=== PATIENT | female | born 1970 | race Caucasian/White ===

== ENCOUNTER 2018-12-05 06:49 | Inpatient (IN) | payer OTHER ==
[~2018-12-05] VITALS: Ht 154.9 cm; Wt 81.6 kg
--- NOTE | 2018-12-05 07:00 | ERD ---
ER Documentation Chief Complaint Chief Complaint right sided abdominal pain HPI The patient is a 48-year-old female, presenting to the ER because of right-sided abdominal pain that began around 9 PM last night, she has similar symptoms previously, the abdominal pain is associated with constipation and dysuria and vomiting. She denies fever, chills, neck pain, chest pain, dyspnea. She does not smoke nor drink Past medical history: None Past surgical history: Tubal ligation ROS All systems reviewed and are negative except as per history of present illness. Allergies Allergies: Coded Allergies: No Known Allergy (Unverified , 01/29/14) PMhx/Soc History of Surgery: No Anesthesia Reaction: No Hx Neurological Disorder: No Hx Respiratory Disorders: No Hx Cardiac Disorders: No Hx Psychiatric Problems: Yes (bipolar) Hx Miscellaneous Medical Probl: Yes (thyroid ?) Physical Exam Vitals Vital Signs Date Temp Pulse Resp B/P (MAP) Pulse Ox O2 O2 Flow FiO2 Time Delivery Rate 12/05/18 60 25 149/89 95 Room Air 07:15 (109) 12/05/18 98.9 72 19 168/98 99 06:50 (121) Physical Exam Const: No acute distress. Head: Atraumatic. Eyes: Normal Conjunctiva. ENT: Normal External Ears, Nose and Mouth. Neck: Full range of motion. No meningismus. Resp: Clear to auscultation bilaterally. Cardio: Regular rate and rhythm. Abd: Soft, non distended, normal bowel sounds, mild right upper and moderate right lower abdominal tenderness, mild right CVA tenderness, no rigidity/rebound tenderness Skin: No petechiae or rashes. Back: No midline or flank tenderness. Ext: No cyanosis, or edema. Neur: Awake and alert. No focal deficit Psych: Normal Mood and Affect. Result Diagram: 12/05/1871212/05/1813 Results 24 hrs Laboratory Tests Test 12/05/18 07:13 12/05/18 07:24 12/05/18 07:26 White Blood Count 12.7 10^3/ul Red Blood Count 3.90 10^6/ul Hemoglobin 12.1 g/dl Hematocrit 35.9 % Mean Corpuscular Volume 92.1 fl Mean Corpuscular Hemoglobin 31.0 pg Mean Corpuscular 33.7 g/dl Hemoglobin Concent Red Cell Distribution Width 13.1 % Platelet Count 229 10^3/UL Mean Platelet Volume 10.7 fl Immature Granulocytes % 0.300 % Neutrophils % 80.3 % Lymphocytes % 13.8 % Monocytes % 5.0 % Eosinophils % 0.2 % Basophils % 0.4 % Nucleated Red Blood Cells % 0.0 /100WBC Immature Granulocytes # 0.040 10^3/ul Neutrophils # 10.2 10^3/ul Lymphocytes # 1.8 10^3/ul Monocytes # 0.6 10^3/ul Eosinophils # 0.0 10^3/ul Basophils # 0.1 10^3/ul Nucleated Red Blood Cells # 0.0 10^3/ul Sodium Level 142 mmol/L Potassium Level 4.1 mmol/L Chloride Level 111 mmol/L Carbon Dioxide Level 24 mmol/L Anion Gap 7 Blood Urea Nitrogen 17 mg/dl Creatinine 0.79 mg/dl Est Glomerular Filtrat Rate mL/min > 60 mL/min Glucose Level 118 mg/dl Calcium Level 9.5 mg/dl Total Bilirubin 0.5 mg/dl Direct Bilirubin 0.00 mg/dl Indirect Bilirubin 0.5 mg/dl Aspartate Amino Transf (AST/SGOT) 25 IU/L Alanine 16 IU/L Aminotransferase (ALT/SGPT) Alkaline Phosphatase 78 IU/L Total Protein 7.9 g/dl Albumin 4.3 g/dl Globulin 3.60 g/dl Albumin/Globulin Ratio 1.19 Lipase 81 U/L Bedside Urine pH (LAB) 7.0 Bedside Urine Protein (LAB) 1+ Bedside Urine Glucose (UA) Negative Bedside Urine Ketones (LAB) Negative Bedside Urine Blood 3+ Bedside Urine Nitrite (LAB) Negative Bedside Urine Leukocyte Esterase Trace (L POC Beta HCG, Qualitative NEGATIVE Current Medications Medications Dose Sig/Leann Start Time Status Last (Trade) Ordered Route PRN Stop Time Admin Dose Reason Admin Morphine 2 mg ONCE STAT 12/05/18 DC 12/05/18 Sulfate IV 07:16 07:25 (morphine) 12/05/18 07:19 Ondansetron 4 mg ONCE STAT 12/05/18 DC 12/05/18 HCl (Zofran IV 07:16 07:25 Inj) 12/05/18 07:19 Ketorolac 30 mg ONCE STAT 12/05/18 DC Tromethamine IV 09:20 (Toradol) 12/05/18 09:23 0.5 mg ONCE STAT 4/14/19 DC Hydromorphone IV 09:20 HCl 12/05/18 09:23 (Dilaudid) Ceftriaxone 50 ml @ ONCE ONCE 12/05/18 Sodium 100 mls/hr IVPB 09:30 12/05/18 09:59 Procedures/MDM [place] [address] Radiology Main Line: [phone] DIAGNOSTIC IMAGING REPORT Patient: COLT SHAH : 1970 Age: 48 Sex: F [id number] DOS: 12/05/18 0719 Ordering MD: EMILY SEGURA MD Location: E/R Room/Bed: PROCEDURE: CT abdomen and pelvis without contrast. CLINICAL INDICATION: Abdominal Pain TECHNIQUE: CT scan of the abdomen and pelvis without contrast was performed and is reconstructed at 2.5 mm contiguous axial intervals from the dome of the diaphragm to the inferior pubic rami.. The patient was scanned without intravenous contrast. Sagittal and coronal reformatted images were obtained from the axial source images. The calculated radiation dose measures 916 mGy centimeters. The CTDI measures 16 mGy. Individualized dose optimization technique was used for the performance of this exam. This included 1. Automated exposure control. 2. Adjustment of the mA and / or kV according to the patient's size. 3. Use of iterative reconstructed technique. COMPARISON: None. FINDINGS: The lung bases are clear of any infiltrate or nodule. No effusion is seen. The liver is of normal size, contour and attenuation with no mass or ductal dilatation. No gallstones are visualized. No splenic, adrenal or pancreatic a bnormalities present. Kidneys are of normal size and contour. Noted is moderate right hydroureter nephrosis with perinephric stranding. There are 2 adjacent calculi at the ureterovesicular junction, the larger of which measures 6 mm in diameter. Left intrarenal collecting system and ureter are normal. No bladder masses present. The uterus appears normal. There is no adnexal mass. There is no aneurysm. No adenopathy is present. No bowel mass or obstruction is present. The appendix is normal. There are a few scattered diverticula. No phlegmon, ascites or pneumoperitoneum is visualized. There is L2-L3 degenerative disc disease. IMPRESSION: Moderate Right hydroureter nephrosis with adjacent calculi ureterovesicular junction, larger of which measures 6 mm in diameter. Diverticulosis. No evidence of diverticulitis or appendicitis. L2-L3 degenerative disc disease. .Dajuan Irwin MD, MD Date Time Electronically viewed and signed by .Dajuan Irwin MD, MD on 12/05/2018 08:27 .A/ CC: EMILY SEGURA MD [phone] Consultation: I discussed the patient with the [facility] urologist Dr. Allen at 9:25 AM, who was made aware of the lab, the treatment, the patient condition and he accepted the consult MEDICAL MAKING DECISION: The patient is a 48-year-old male, presenting with acute right ureterolithiasis with moderate hydroureteronephrosis, treated with morphine 2 mg IV, Dilaudid 0.5 mg IV and Toradol 30 mg IV for pain, Zofran 4 mg IV for nausea and Rocephin 1 g IV empirically acute leukocytosis, concerning for infected kidney stones, urine culture requested The differential diagnoses considered include but are not limited to cholel ithiasis, cholecystitis, choledocholithiasis, cholangitis, pancreatitis, hepatitis, gastritis, peptic ulcer disease, gastric ulcer, appendicitis, cystitis, diverticulitis, partial small bowel obstruction. Departure Diagnosis: Primary Impression: Right ureteral calculus Additional Impression: Hydroureteronephrosis Condition: Stable Comments I discussed the findings with the patient. I discussed the patient with hospitalist , who was made aware of the lab, the treatment, the patient condition. The patient is admitted to [facility] Disclaimer: Inadvertent spelling and grammatical errors are likely due to EHR/dictation software use and do not reflect on the overall quality of patient care. Also, please note that the electronic time recorded on this note does not necessarily reflect the actual time of the patient encounter. EMILY SEGURA MD Dec 05, 2018 07:00
[2018-12-05] MEDS ORDERED: ONDANSETRON 4 MG INJ IV STA (07:16)
[2018-12-05] MEDS ORDERED: morphine 2 MG INJ IV STA (07:16)
[2018-12-05] MEDS ORDERED: HYDROmorphONE 0.5 MG/0.5 ML SYG IV STA (09:20)
[2018-12-05] MEDS ORDERED: KETOROLAC 30 MG INJ IV STA (09:20)
[2018-12-05] MEDS ORDERED: CEFTRIAXONE 1 GM/50 ML (PMX) 50 ML IVPB ONE (09:30)
[2018-12-05 11:49] VITALS: BP 136/58; PULSE 63; RESP 18
[2018-12-05 12:00] VITALS: Ht 154.9 cm; Wt 81.6 kg
[2018-12-05] MEDS ORDERED: ALBUTEROL/IPRATROPIUM (NEB) 3 ML AMP HHN PRN (12:00)
[2018-12-05] MEDS ORDERED: LORAZEPAM 2 MG INJ IV PRN (12:00)
[2018-12-05] MEDS ORDERED: hydrALAzine 20 MG INJ IV PRN (12:00)
[2018-12-05] MEDS ORDERED: DOCUSATE SODIUM 100 MG CAP PO PRN (12:00)
[2018-12-05] MEDS ORDERED: MAGNESIUM HYDROXIDE 30ML CUP PO PRN (12:00)
[2018-12-05] MEDS ORDERED: HYDROCODONE/APAP (5/325) TAB PO PRN (12:00)
[2018-12-05] MEDS ORDERED: NACL 0.9% 3 ML SYG IV SCH (12:00)
[2018-12-05] MEDS ORDERED: ONDANSETRON 4 MG INJ IV PRN (12:00)
[2018-12-05] MEDS ORDERED: ACETAMINOPHEN 325 MG TAB PO PRN (12:00)
[2018-12-05] MEDS ORDERED: NITROGLYCERIN (SL) 0.4 MG TAB SL PRN (12:00)
[2018-12-05] MEDS: PIPER-TAZO 3.375 GM IV (PMX) 100 ML IVPB SCH ×2 (12:36→17:04)
--- NOTE | 2018-12-05 12:41 | HP ---
DATE OF ADMISSION: 12/05/2018 CHIEF COMPLAINT: Right flank pain. HISTORY OF PRESENT ILLNESS: A 48-year-old female with past medical history of possible thyroid probl ems and possible bipolar disorder who has been having right-sided flank and abdominal pain. Symptoms began last night. She had some vomiting symptoms, nonbilious, nonbloody. She has never had these s ymptoms before. She apparently had some mild dysuria as well. Denies any hematuria. No fevers or c hills. No diarrhea or constipation. No chest pain or shortness of breath. When she came in, she [place] d a CT scan abdomen and pelvis performed that shows signs of moderate right hydroureteronephrosis wit h adjacent calculi UV junction, larger of which measures 6 mm in diameter. A call was made out to [facility] urologist to come evaluate the patient, which is still pending. The patient also was found white c ount of 12.7. PAST MEDICAL HISTORY: As stated above. ALLERGIES: NO KNOWN DRUG ALLERGIES. HOME MEDICATIONS: None. PAST SURGICAL HISTORY: She has had tubal ligation in the past. SOCIAL HISTORY: Negative for smoking or drinking, or IV drug abuse. FAMILY HISTORY: Noncontributory. PHYSICAL EXAMINATION: VITAL SIGNS: T-max 98.9, pulse 60 to 72, respirations 19 to 25, blood pressure 168 to 149 systolic/9 8 to 89 diastolic, satting at 95% room air. GENERAL: The patient is lying in bed, answering questions appropriately. No acute distress. HEENT: Pupils equal, round, react to light. Extraocular muscles intact. NECK: Supple. No thyromegaly. LUNGS: Clear to auscultation bilaterally. CARDIOVASCULAR: S1, S2 heard. No rubs or gallops. ABDOMEN: Mild right CVA tenderness noted. Otherwise, normal bowel sounds. No rebound or guarding. MUSCULOSKELETAL: No lower extremity edema bilaterally. NEUROLOGIC: No focal deficits. LABORATORY DATA: CBC shows WBC 12.7, hemoglobin 12.1, hematocrit 35.9, platelets 229. Comprehensive metabolic panel is normal. Lipase is normal. UA shows trace leukocyte esterase mentioned the CT scan of abdomen and pelvis findings. ASSESSMENT AND PLAN: A 48-year-old female coming in with right flank pain with signs of right-sided kidney stone and mild urinary tract infection. 1. Right flank pain, again secondary to kidney stone, UTI. Admit the patient, put on broad spectrum antibiotics. Keep her n.p.o. and give IV fluids. Will get a urology consult. Consider starting Fl omax. Check TSH, A1c, lipid panel. 2. Questionable history of bipolar disorder. No present issues. Ativan p.r.n. 3. Possible thyroid problem. The patient denies this. Will check thyroid panel. 4. Deep venous thrombosis prophylaxis, heparin subQ. Dictated By: NATALIE BROWN Conf#: [id number] DID#: [id number]
--- NOTE | 2018-12-05 13:01 | CONS ---
Assessment/Plan Assessment/Plan Hospital Course (Demo Recall) 48-year-old female presented to the emergency room with right flank pain with nausea and vomiting. She also complains of dysuria and feeling of constant urge to urinate. She underwent a CT scan of the abdomen and pelvis and that showed: Moderate Right hydroureter nephrosis with adjacent calculi ureterovesicular junction, larger of which measures 6 mm in diameter. Diverticulosis. No evidence of diverticulitis or appendicitis. L2-L3 degenerative disc disease. Patient states that she has been having the pain on and off since June and she previously has gone to another hospital and nothing was done for her. Patient does have right flank tenderness. Impression: Distal right ureteral stones. Patient has been having pain on and off since June 2018. Plan: Strain the urine, pain medications, tamsulosin, antibiotic and if he does not pass a stone we will do cystoscopy right ureteroscopy laser lithotripsy and insertion of right ureteral JJ stent. Consultation Date/Type/Reason Admit Date/Time Dec 05, 2018 at 09:49 Date of Consultation: Dec 05, 2018 Type of Consult Urology Reason for Consultation Distal right ureteral stones Requesting Provider: NATALIE LONGORIA Date/Time of Note DATE: 12/05/18 TIME: 12:57 Hx of Present Illness 48-year-old female presented to the emergency room with right flank pain with nausea and vomiting. She also complains of dysuria and feeling of constant urge to urinate. She underwent a CT scan of the abdomen and pelvis and that showed: Moderate Right hydroureter nephrosis with adjacent calculi ureterovesicular junction, larger of which measures 6 mm in diameter. Diverticulosis. No evidence of diverticulitis or appendicitis. L2-L3 degenerative disc disease. Patient states that she has been having the pain on and off since June and she previously has gone to another hospital and nothing was done for her. Constitutional: no complaints Eyes: no complaints ENT: no complaints Respiratory: no complaints Cardiovascular: no complaints Gastrointestinal: no complaints, nausea (On admission but not now), vomiting (On admission but not now) Genitourinary: flank pain (Right side) Musculoskeletal: no complaints Skin: no complaints Neurologic: no complaints Endocrine: no complaints Psychological: no complaints Past Medical History Medical History: no pertinent history Home Meds No Active Prescriptions or Reported Meds Medications Current Medications IV Flush (NS 3 ml) 3 ml PER PROTOCOL IV ; Start 12/05/18 at 12:00 Ondansetron HCl (Zofran Inj) 4 mg Q6H PRN IV NAUSEA/VOMITING; Start 12/05/18 at 12:00 Acetaminophen (Tylenol Tab) 650 mg Q6H PRN PO .PAIN 1-3 OR TEMP; Start 12/05/18 at 12:00 Acetaminophen/ Hydrocodone Bitart ([place] (5/325)) 1 tab Q6H PRN PO .MOD PAIN 4- 6; Start 12/05/18 at 12:00 Morphine Sulfate (morphine) 2 mg Q4H PRN IV .SEVERE PAIN 7-10; Start 12/05/18 at 12:00 Docusate Sodium (Colace) 100 mg Q12H PRN PO .CONSTIPATION; Start 12/05/18 at 12:00 Magnesium Hydroxide (Milk Of Mag) 30 ml DAILY PRN PO .CONSTIPATION; Start 12/05/18 at 12:00 Heparin Sodium (Porcine) (Heparin (5000 Units/1ml)) 5,000 unit Q12 SC ; Start 12/05/18 at 21:00 Sodium Chloride 1,000 ml @ 75 mls/hr [id number] IV ; Start 12/05/18 at 11:36 Lorazepam (Ativan) 0.5 mg Q6H PRN IV ANXIETY; Start 12/05/18 at 12:00 Albuterol/ Ipratropium (Duoneb) 3 ml Q4H RESP THERAPY PRN HHN SHORTNESS OF BREATH; Start 12/05/18 at 12:00 Piperacillin Sod/ Tazobactam Sod 100 ml @ 200 mls/hr Q6 IVPB Last administered on 12/05/18at 12:36; Admin Dose 200 MLS/HR; Start 12/05/18 at 12:00 Hydralazine HCl (Apresoline) 10 mg Q6H PRN IV ELEVATED BLOOD PRESSURE; Start 12/05/18 at 12:00 Clonidine (Catapres) 0.1 mg Q6H PRN PO ELEVATED BLOOD PRESSURE; Start 12/05/18 at 12:00 Nitroglycerin (Nitroglycerin (Sl Tab) 0.4 Mg) 1 tab Q5M PRN SL ANGINA; Start 12/05/18 at 12:00 Tamsulosin HCl (Flomax) 0.4 mg HS PO ; Start 12/05/18 at 21:00 Allergies: Coded Allergies: No Known Allergy (Unverified , 12/05/18) Past Surgical History Past Surgical Hx: other (Tubal ligation) Social History Alcohol Use: none Smoking Status: Never smoker Drug Use: none Other Social History She is a 3, para 3, 3 normal deliveries Exam/Review of Systems Exam Vitals Vital Signs Date Temp Pulse Resp B/P (MAP) Pulse Ox O2 O2 Flow FiO2 Time Delivery Rate 12/05/18 98.3 63 18 136/58 94 11:49 (84) 12/05/18 Room Air 10:32 Constitutional: alert, oriented Psych: no complaints Head: normocephalic Eyes: nl conjunctiva ENMT: nl external ears & nose Neck: supple, non-tender Respiratory: clear to auscultation; No wheezing Cardiovascular: No jugular venous distention (JVD) Gastrointestinal: soft Genitourinary - Female: CVA tenderness (Right flank) Extremities: No calf tenderness Neurological: nl mental status Skin: nl turgor Lymph: nl lymph nodes Results Result Diagram: 12/05/18 0713 12/05/18 0713 Results 24hrs Laboratory Tests Test 12/05/18 07:13 12/05/18 07:24 12/05/18 07:26 12/05/18 12:13 White Blood Count 12.7 H Red Blood Count 3.90 L Hemoglobin 12.1 Hematocrit 35.9 L Mean Corpuscular 92.1 Volume Mean Corpuscular 31.0 Hemoglobin Mean Corpuscular 33.7 Hemoglobin Concent Red Cell 13.1 Distribution Width Platelet Count 229 Mean Platelet Volume 10.7 H Immature 0.300 Granulocytes % Neutrophils % 80.3 H Lymphocytes % 13.8 L Monocytes % 5.0 Eosinophils % 0.2 Basophils % 0.4 Nucleated Red Blood 0.0 Cells % Immature 0.040 H Granulocytes # Neutrophils # 10.2 H Lymphocytes # 1.8 Monocytes # 0.6 Eosinophils # 0.0 Basophils # 0.1 Nucleated Red Blood 0.0 Cells # Sodium Level 142 Potassium Level 4.1 Chloride Level 111 H Carbon Dioxide Level 24 Anion Gap 7 Blood Urea Nitrogen 17 Creatinine 0.79 Est Glomerular > 60 Filtrat Rate mL/min Glucose Level 118 Calcium Level 9.5 Total Bilirubin 0.5 Direct Bilirubin 0.00 Indirect Bilirubin 0.5 Aspartate Amino 25 Transf (AST/SGOT) Alanine 16 Aminotransferase (AL T/SGPT) Alkaline Phosphatase 78 Total Protein 7.9 Albumin 4.3 Globulin 3.60 H Albumin/Globulin 1.19 Ratio Lipase 81 Bedside Urine pH 7.0 (LAB) Bedside Urine 1+ H Protein (LAB) Bedside Urine Negative Glucose (UA) Bedside Urine Negative Ketones (LAB) Bedside Urine Blood 3+ H Bedside Urine Negative Nitrite (LAB) Bedside Urine Trace H Leukocyte Esterase (L POC Beta HCG, NEGATIVE Qualitative Prothrombin Time 13.2 Prothrombin Time 1.0 Ratio INR International 0.99 Normalized Ratio Activated 29.2 Partial Thromboplast Time Imaging Imaging CT scan of the abdomen and pelvis showed: Moderate Right hydroureter nephrosis with adjacent calculi ureterovesicular junction, larger of which measures 6 mm in diameter. Diverticulosis. No evidence of diverticulitis or appendicitis. L2-L3 degenerative disc disease. Medications Medication Current Medications IV Flush (NS 3 ml) 3 ml PER PROTOCOL IV ; Start 12/05/18 at 12:00 Ondansetron HCl (Zofran Inj) 4 mg Q6H PRN IV NAUSEA/VOMITING; Start 12/05/18 at 12:00 Acetaminophen (Tylenol Tab) 650 mg Q6H PRN PO .PAIN 1-3 OR TEMP; Start 12/05/18 at 12:00 Acetaminophen/ Hydrocodone Bitart ([place] (5/325)) 1 tab Q6H PRN PO .MOD PAIN 4- 6; Start 12/05/18 at 12:00 Morphine Sulfate (morphine) 2 mg Q4H PRN IV .SEVERE PAIN 7-10; Start 12/05/18 at 12:00 Docusate Sodium (Colace) 100 mg Q12H PRN PO .CONSTIPATION; Start 12/05/18 at 12:00 Magnesium Hydroxide (Milk Of Mag) 30 ml DAILY PRN PO .CONSTIPATION; Start 12/05/18 at 12:00 Heparin Sodium (Porcine) (Heparin (5000 Units/1ml)) 5,000 unit Q12 SC ; Start 12/05/18 at 21:00 Sodium Chloride 1,000 ml @ 75 mls/hr [id number] IV ; Start 12/05/18 at 11:36 Lorazepam (Ativan) 0.5 mg Q6H PRN IV ANXIETY; Start 12/05/18 at 12:00 Albuterol/ Ipratropium (Duoneb) 3 ml Q4H RESP THERAPY PRN HHN SHORTNESS OF BREATH; Start 12/05/18 at 12:00 Piperacillin Sod/ Tazobactam Sod 100 ml @ 200 mls/hr Q6 IVPB Last administered on 12/05/18at 12:36; Admin Dose 200 MLS/HR; Start 12/05/18 at 12:00 Hydralazine HCl (Apresoline) 10 mg Q6H PRN IV ELEVATED BLOOD PRESSURE; Start 12/05/18 at 12:00 Clonidine (Catapres) 0.1 mg Q6H PRN PO ELEVATED BLOOD PRESSURE; Start 12/05/18 at 12:00 Nitroglycerin (Nitroglycerin (Sl Tab) 0.4 Mg) 1 tab Q5M PRN SL ANGINA; Start 12/05/18 at 12:00 Tamsulosin HCl (Flomax) 0.4 mg HS PO ; Start 12/05/18 at 21:00 DULCE LLOYD MD Dec 05, 2018 13:01
[2018-12-05] MEDS: morphine 2 MG INJ IV PRN ×2 (13:02→20:48)
[2018-12-05 14:45] VITALS: BP 109/66; PULSE 57; RESP 18
[2018-12-05] MEDS: SOD CHLORIDE 0.45% 1,000 ML IV SCH (16:26)
[2018-12-05 20:25] VITALS: BP 102/65; PULSE 58; RESP 18
[2018-12-05] MEDS: TAMSULOSIN (SR) 0.4 MG CAP PO SCH (20:30)
[2018-12-05] MEDS: HEPARIN 5,000 UNIT/1 ML VIAL SC SCH (20:34)
[2018-12-06] VITALS (16 sets, daily range): BP systolic 99–128; BP diastolic 50–74; PULSE 52–71; RESP 13–19
[2018-12-06] MEDS: PIPER-TAZO 3.375 GM IV (PMX) 100 ML IVPB SCH ×5 (00:32→23:08)
[2018-12-06] MEDS: SOD CHLORIDE 0.45% 1,000 ML IV SCH ×3 (00:56→21:42)
[2018-12-06] MEDS ORDERED: CEFAZOLIN 1 GM INJ ONE (07:00)
[2018-12-06] MEDS ORDERED: SEVOFLURANE 15 MIN ONE (07:00)
[2018-12-06] MEDS: HEPARIN 5,000 UNIT/1 ML VIAL SC SCH ×2 (07:38→21:00)
--- NOTE | 2018-12-06 15:38 | RADRPT ---
Vent Rate: 51 bpm RR Interval: 1168 msec OK Interval: 132 msec QRS Duration: 97 msec QT Interval: 474 msec QTC Interval: 439 msec P-R-T [place]: 14 - 55 - 62 degrees Sinus rhythm...normal P axis, V-rate 50- 99 RSR' in V1 or V2, probably normal variant...small R' only Electronically Signed By: José Mccartney
--- NOTE | 2018-12-06 16:38 | PN ---
Date/Time of Note Date/Time of Note DATE: 12/06/18 TIME: 16:33 Assessment/Plan VTE Prophylaxis Risk score (from Nsg)>0 risk: 3 SCD applied (from Nsg): Yes Pharmacological prophylaxis: heparin Lines/Catheters IV Catheter Type (from Nrsg): Peripheral IV Assessment/Plan Assessment/Plan A 48-year-old obese woman coming in with right flank pain with signs of right- sided kidney stone and mild urinary tract infection. 1. Right flank pain, again secondary to kidney stone, UTI. Admit the patient, put on antibiotics and flomax. IV fluids. Urology consulted. 2. Questionable history of bipolar disorder. No present issues. Deep venous thrombosis prophylaxis, heparin subQ. Result Diagram: 12/06/18 0435 12/06/18434 Subjective 24 Hr Interval Summary Free Text/Dictation No acute overnight events. Continues to have mild dysuria and intermittent cramping pain. Otherwise feeling well, no complaints. Exam/Review of Systems Exam Vitals Vital Signs Date Temp Pulse Resp B/P (MAP) Pulse Ox O2 O2 Flow FiO2 Time Delivery Rate 12/06/18 98.6 18 102/66 99 15:26 (78) 12/06/18 52 07:30 12/05/18 Room Air 10:32 Intake and Output 12/05/18 12/05/18 12/06/18 1515:00 23:00 07:00 IntakeIntake Total 500 ml 575 ml 1125 ml OutputOutput Total 200 ml 400 ml BalanceBalance 300 ml 175 ml 1125 ml Exam GENERAL: The patient is lying in bed, answering questions appropriately. No acute distress. HEENT: Pupils equal, round, react to light. Extraocular muscles intact. NECK: Supple. No thyromegaly. LUNGS: Clear to auscultation bilaterally. CARDIOVASCULAR: S1, S2 heard. No rubs or gallops. ABDOMEN: Mild right CVA tenderness noted. Otherwise, normal bowel sounds. No rebound or guarding. MUSCULOSKELETAL: No lower extremity edema bilaterally. Results Results 24hrs Laboratory Tests Test 12/06/18 04:35 White Blood Count 6.8 # Red Blood Count 3.55 L Hemoglobin 10.9 L Hematocrit 33.7 L Mean Corpuscular Volume 94.9 Mean Corpuscular Hemoglobin 30.7 Mean Corpuscular Hemoglobin Concent 32.3 Red Cell Distribution Width 13.0 Platelet Count 203 Mean Platelet Volume 11.1 H Immature Granulocytes % 0.100 Neutrophils % 58.0 Lymphocytes % 30.8 Monocytes % 8.3 Eosinophils % 2.1 Basophils % 0.7 Nucleated Red Blood Cells % 0.0 Immature Granulocytes # 0.010 Neutrophils # 3.9 Lymphocytes # 2.1 Monocytes # 0.6 Eosinophils # 0.1 Basophils # 0.1 Nucleated Red Blood Cells # 0.0 Sodium Level 140 Potassium Level 3.9 Chloride Level 106 Carbon Dioxide Level 26 Anion Gap 8 Blood Urea Nitrogen 17 Creatinine 0.82 Est Glomerular Filtrat Rate mL/min > 60 Glucose Level 102 Hemoglobin A1c 5.2 Calcium Level 8.6 Phosphorus Level 4.3 Magnesium Level 1.9 Triglycerides Level 169 H Cholesterol Level 205 H LDL Cholesterol, Calculated 127 HDL Cholesterol 44 Cholesterol/HDL Ratio 4.6 Thyroid Stimulating Hormone (TSH) 2.390 Medications Medication Current Medications IV Flush (NS 3 ml) 3 ml PER PROTOCOL IV ; Start 12/05/18 at 12:00 Ondansetron HCl (Zofran Inj) 4 mg Q6H PRN IV NAUSEA/VOMITING; Start 12/05/18 at 12:00 Acetaminophen (Tylenol Tab) 650 mg Q6H PRN PO .PAIN 1-3 OR TEMP; Start 12/05/18 at 12:00 Acetaminophen/ Hydrocodone Bitart ([place] (5/325)) 1 tab Q6H PRN PO .MOD PAIN 4- 6; Start 12/05/18 at 12:00 Morphine Sulfate (morphine) 2 mg Q4H PRN IV .SEVERE PAIN 7-10 Last administered on 12/05/18at 20:48; Admin Dose 2 MG; Start 12/05/18 at 12:00 Docusate Sodium (Colace) 100 mg Q12H PRN PO .CONSTIPATION; Start 12/05/18 at 12:00 Magnesium Hydroxide (Milk Of Mag) 30 ml DAILY PRN PO .CONSTIPATION; Start 12/05/18 at 12:00 Heparin Sodium (Porcine) (Heparin (5000 Units/1ml)) 5,000 unit Q12 SC Last administered on 12/05/18at 20:34; Admin Dose 5,000 UNIT; Start 12/05/18 at 21:00 Sodium Chloride 1,000 ml @ 75 mls/hr [id number] IV Last administered on 12/06/18at 05:34; Admin Dose 75 MLS/HR; Start 12/05/18 at 11:36 Lorazepam (Ativan) 0.5 mg Q6H PRN IV ANXIETY; Start 12/05/18 at 12:00 Albuterol/ Ipratropium (Duoneb) 3 ml Q4H RESP THERAPY PRN HHN SHORTNESS OF BREATH; Start 12/05/18 at 12:00 Piperacillin Sod/ Tazobactam Sod 100 ml @ 200 mls/hr Q6 IVPB Last administered on 12/06/18at 12:29; Admin Dose 200 MLS/HR; Start 12/05/18 at 12:00 Hydralazine HCl (Apresoline) 10 mg Q6H PRN IV ELEVATED BLOOD PRESSURE; Start 12/05/18 at 12:00 Clonidine (Catapres) 0.1 mg Q6H PRN PO ELEVATED BLOOD PRESSURE; Start 12/05/18 at 12:00 Nitroglycerin (Nitroglycerin (Sl Tab) 0.4 Mg) 1 tab Q5M PRN SL ANGINA; Start 12/05/18 at 12:00 Tamsulosin HCl (Flomax) 0.4 mg HS PO Last administered on 12/05/18at 20:30; Admin Dose 0.4 MG; Start 12/05/18 at 21:00 NORMA COPELAND MD Dec 06, 2018 16:38
--- NOTE | 2018-12-06 17:07 | HPN ---
Date/Time of Note Date/Time of Note DATE: 12/06/18 TIME: 17:06 Interval H&P Admission Note Pt. seen H&P reviewed: No system changes DULCE LLOYD MD Dec 06, 2018 17:06
--- NOTE | 2018-12-06 18:06 | PREAC ---
Date/Time of Note Date/Time of Note DATE: 12/06/18 TIME: 18:04 Anesthesia Eval and Record Evaluation Time Pre-Procedure Interview DATE: 12/06/18 TIME: 18:04 Age 48 Sex female NPO: 8 hrs Preoperative diagnosis right ureteral stone Planned procedure Cystoscopy, right ureteroscopy, laser lithotripsy and insertion of right ureteral JJ stent. Past Medical History Past Medical History: Includes GI: Obesity Psych: Bipolar (possible history of ) Surgery & Anesthesia Issues No known issue Meds Anticoagulation: No Beta Duncan within 24 hr: No Reason Beta Duncan not given: Pt. not on B-Duncan No Active Prescriptions or Reported Meds Current Medications IV Flush (NS 3 ml) 3 ml PER PROTOCOL IV ; Start 12/05/18 at 12:00 Ondansetron HCl (Zofran Inj) 4 mg Q6H PRN IV NAUSEA/VOMITING; Start 12/05/18 at 12:00 Acetaminophen (Tylenol Tab) 650 mg Q6H PRN PO .PAIN 1-3 OR TEMP; Start 12/05/18 at 12:00 Acetaminophen/ Hydrocodone Bitart ([place] (5/325)) 1 tab Q6H PRN PO .MOD PAIN 4- 6; Start 12/05/18 at 12:00 Morphine Sulfate (morphine) 2 mg Q4H PRN IV .SEVERE PAIN 7-10 Last administered on 12/05/18at 20:48; Admin Dose 2 MG; Start 12/05/18 at 12:00 Docusate Sodium (Colace) 100 mg Q12H PRN PO .CONSTIPATION; Start 12/05/18 at 12:00 Magnesium Hydroxide (Milk Of Mag) 30 ml DAILY PRN PO .CONSTIPATION; Start 11/22 12/10 at 12:00 Heparin Sodium (Porcine) (Heparin (5000 Units/1ml)) 5,000 unit Q12 SC Last administered on 12/05/18at 20:34; Admin Dose 5,000 UNIT; Start 12/05/18 at 21:00 Sodium Chloride 1,000 ml @ 75 mls/hr [id number] IV Last administered on 12/06/18at 05:34; Admin Dose 75 MLS/HR; Start 12/05/18 at 11:36 Lorazepam (Ativan) 0.5 mg Q6H PRN IV ANXIETY; Start 12/05/18 at 12:00 Albuterol/ Ipratropium (Duoneb) 3 ml Q4H RESP THERAPY PRN HHN SHORTNESS OF BREATH; Start 12/05/18 at 12:00 Piperacillin Sod/ Tazobactam Sod 100 ml @ 200 mls/hr Q6 IVPB Last administered on 12/06/18at 12:29; Admin Dose 200 MLS/HR; Start 12/05/18 at 12:00 Hydralazine HCl (Apresoline) 10 mg Q6H PRN IV ELEVATED BLOOD PRESSURE; Start 12/05/18 at 12:00 Clonidine (Catapres) 0.1 mg Q6H PRN PO ELEVATED BLOOD PRESSURE; Start 12/05/18 at 12:00 Nitroglycerin (Nitroglycerin (Sl Tab) 0.4 Mg) 1 tab Q5M PRN SL ANGINA; Start 12/05/18 at 12:00 Tamsulosin HCl (Flomax) 0.4 mg HS PO Last administered on 12/05/18at 20:30; Admin Dose 0.4 MG; Start 12/05/18 at 21:00 Meds reviewed: Yes Allergies Coded Allergies: No Known Allergy (Unverified , 12/05/18) Allergies Reviewed: Yes Labs/Studies Labs Reviewed: Reviewed by anesthesiologist Result Diagram: 12/06/18 0435 12/06/18 0435 Laboratory Tests 12/06/18 04:35 test: Negative Pre-procedure Exam Last vitals Vital Signs Date Temp Pulse Resp B/P (MAP) Pulse Ox O2 O2 Flow FiO2 Time Delivery Rate 12/06/18 98.6 18 102/66 99 15:26 (78) 12/06/18 52 07:30 12/05/18 Room Air 10:32 Airway: Adequate mouth opening, Adequate thyromental dist Mallampati: Mallampati II Teeth: Normal Lung: Normal Heart: Normal ASA Physical Status ASA physical status: 2 Emergency: None Planned Anesthetic General/MAC: ETT (vs), LMA Planned Pain Management Parenteral pain med Pre-operative Attestations Prior to commencing anesthesia and surgery, the patient was re-evaluated, there was verification of: *The patient's identity *The results of appropriate recent lab work and preoperative vital signs *The above evaluation not changing prior to induction *Anesthetic plan, risk benefits, alternative and complications discussed with cindy blancas/family; questions answered; patient/family understands, accepts and wishes to proceed. BROCK MIRANDA MD Dec 06, 2018 18:06
[2018-12-06] MEDS ORDERED: PROPOFOL 20 ML ONE ×2 (18:20→18:32)
[2018-12-06] MEDS ORDERED: MIDAZOLAM 1 MG/ML 2 ML INJ ONE (18:20)
[2018-12-06] MEDS ORDERED: LIDOCAINE 2% (SDV) 5 ML INJ ONE (18:20)
[2018-12-06] MEDS ORDERED: PROCHLORPERAZINE 10 MG INJ IV PRN (18:30)
[2018-12-06] MEDS ORDERED: HYDROmorphONE 1 MG/5 ML IV SYRINGE IV PRN ×3 (18:30)
[2018-12-06] MEDS ORDERED: MEPERIDINE 25 MG INJ IV PRN (18:30)
[2018-12-06] MEDS ORDERED: FENTAnyl 50 MCG/ML VIAL IV PRN ×3 (18:30)
[2018-12-06] MEDS ORDERED: ONDANSETRON 4 MG INJ IV PRN (18:30)
[2018-12-06] MEDS ORDERED: DIPHENHYDRAMINE 50 MG INJ IV PRN (18:30)
[2018-12-06] MEDS ORDERED: DEXAMETHASONE 4 MG/ML 5 ML INJ ONE (18:49)
[2018-12-06] MEDS ORDERED: ONDANSETRON 4 MG INJ ONE (18:49)
[2018-12-06] MEDS ORDERED: EPHEDrine 25 MG/5 ML SYG ONE ×2 (18:54→19:12)
--- NOTE | 2018-12-06 19:29 | OPR ---
Date/Time of Note Date/Time of Note DATE: 12/06/18 TIME: 19:26 Operative Report Procedure Date: Dec 06, 2018 Preoperative Diagnosis Distal right ureteral stones Postoperative Diagnosis Same Operation/Procedure Performed Cystoscopy, right ureteroscopy, laser lithotripsy and insertion of right ureteral JJ stent 6 Tunisian by 22 cm long Surgeon see signature line Clinical Data Management Director Ish Tolentino Anesthesia Type: general Anesthesiologist: BROCK MIRANDA MD Estimated Blood Loss: none Transfusion none Specimen Stone fragments Grafts/Implants none Complications none Pt Condition Post Procedure: stable Disposition: PACU Indications Distal right ureteral stones with obstruction Procedure Description The patient was brought to the operating room and general anesthesia was induced. The patient received 2 g of Ancef IV at the start of the procedure. Timeout was done and the patient was identified by her name,birthdate and the procedure and the side of the procedure. The patient was then positioned in the lithotomy position and the genital area was prepped and draped in the usual sterile manner. A 21 Tunisian cystoscope sheath was introduced into the bladder and urine was collected for culture and sensitivity. Right ureteral orifice was identified and then cannulated with a 5 Tunisian open ended ureteral catheter. A 0.035 zip wire was advanced through the open ended catheter all the way up to the kidney. The open-ended was removed leaving the zip wire in place. The open-ended was then introduced through the second working channel of the scope and the ureteral orifice was cannulated again and a 0.035 sensor wire was passed all the way up to the kidney. The open-ended was removed leaving the sensor wire in place. Then the cystoscope was removed. The sensor wire was used as a safety wire and the zip wire was used to advance the rigid ureteroscope on it into the ureter. The stone was then visualized and broken with the holmium laser into pieces. These pieces were basketed and dropped into the bladder until the ureter was free of stone fragments. The ureteroscope was then removed. Cystoscopy was done again and the stone fragments were drained out of the bladder. Then the cystoscope was reintroduced into the bladder over the safety wire and a 6 Tunisian by 22 cm long JJ stent was advanced on the sensor wire, had its proximal end curling into the kidney and the distal end curling into the bladder. The distal end is connected to a string that was taped to the patient's right groin. The patient was transferred to recovery room in stable and satisfactory condition DULCE LLOYD MD Dec 06, 2018 19:29
--- NOTE | 2018-12-06 19:37 | PAC ---
Date/Time of Note Date/Time of Note DATE: 12/06/18 TIME: 19:36 Post-Anesthesia Notes Post-Anesthesia Note Last documented vital signs Vital Signs Date Temp Pulse Resp B/P (MAP) Pulse Ox O2 O2 Flow FiO2 Time Delivery Rate 12/06/18 97.9 19:29 12/06/18 68 16 118/69 100 Mask 8.0 19:25 (85) Activity: WNL Respiratory function: WNL Cardiovascular function: WNL Mental status: Baseline Pain reasonably controlled: Yes Hydration appropriate: Yes Nausea/Vomiting absent: Yes Comments BP: 118/63 HR: 60 RR: 15 T: 97.9 SaO2: 100% BROCK MIRANDA MD Dec 06, 2018 19:37
[2018-12-06] MEDS: TAMSULOSIN (SR) 0.4 MG CAP PO SCH (20:41)
[2018-12-07 04:21] VITALS: BP 111/57; PULSE 63; RESP 18
[2018-12-07] MEDS: PIPER-TAZO 3.375 GM IV (PMX) 100 ML IVPB SCH ×2 (05:35→12:55)
[2018-12-07 07:46] VITALS: BP 103/56; PULSE 59; RESP 18
--- NOTE | 2018-12-07 08:03 | CONS ---
Consult Date/Type/Reason Admit Date/Time Dec 05, 2018 at 09:49 Initial Consult Date 12/05/18 Type of Consultation: Urology Reason for Consultation Distal right ureteral stone Requesting Provider: NATALIE LONGORIA Date/Time of Note DATE: 12/07/18 TIME: 07:59 Subjective Patient is comfortable, she complains of pain when she urinates and that is expected Objective Vitals Vital Signs Date Temp Pulse Resp B/P (MAP) Pulse Ox O2 O2 Flow FiO2 Time Delivery Rate 12/07/18 97.6 59 18 103/56 91 07:46 (72) 12/06/18 Mask 8.0 19:45 Intake and Output 12/06/18 12/06/18 12/07/18 1515:00 23:00 07:00 IntakeIntake Total 100 ml 2000 ml 650 ml OutputOutput Total 10 ml 2300 ml BalanceBalance 100 ml 1990 ml -1650 ml Exam Abdomen is soft. There is no flank tenderness. Results/Medications Result Diagram: 12/07/18 0438 12/07/18 0438 Results 24 hrs Laboratory Tests Test 12/07/18 04:38 White Blood Count 6.6 Red Blood Count 3.73 L Hemoglobin 11.4 L Hematocrit 35.0 L Mean Corpuscular Volume 93.8 Mean Corpuscular Hemoglobin 30.6 Mean Corpuscular Hemoglobin Concent 32.6 Red Cell Distribution Width 12.8 Platelet Count 234 Mean Platelet Volume 10.9 H Immature Granulocytes % 0.500 H Neutrophils % 87.6 H Lymphocytes % 10.8 L Monocytes % 0.9 Eosinophils % 0.0 Basophils % 0.2 Nucleated Red Blood Cells % 0.0 Immature Granulocytes # 0.030 Neutrophils # 5.8 Lymphocytes # 0.7 L Monocytes # 0.1 L Eosinophils # 0.0 Basophils # 0.0 Nucleated Red Blood Cells # 0.0 Sodium Level 142 Potassium Level 3.7 Chloride Level 109 Carbon Dioxide Level 24 Anion Gap 9 Blood Urea Nitrogen 9 Creatinine 0.55 Est Glomerular Filtrat Rate mL/min > 60 Glucose Level 153 Calcium Level 9.0 Home Meds No Active Prescriptions or Reported Meds Medications Current Medications IV Flush (NS 3 ml) 3 ml PER PROTOCOL IV ; Start 12/05/18 at 12:00 Ondansetron HCl (Zofran Inj) 4 mg Q6H PRN IV NAUSEA/VOMITING; Start 12/05/18 at 12:00 Acetaminophen (Tylenol Tab) 650 mg Q6H PRN PO .PAIN 1-3 OR TEMP; Start 12/05/18 at 12:00 Acetaminophen/ Hydrocodone Bitart ([place] (5/325)) 1 tab Q6H PRN PO .MOD PAIN 4- 6; Start 12/05/18 at 12:00 Morphine Sulfate (morphine) 2 mg Q4H PRN IV .SEVERE PAIN 7-10 Last administered on 12/05/18at 20:48; Admin Dose 2 MG; Start 12/05/18 at 12:00 Docusate Sodium (Colace) 100 mg Q12H PRN PO .CONSTIPATION; Start 12/05/18 at 12:00 Magnesium Hydroxide (Milk Of Mag) 30 ml DAILY PRN PO .CONSTIPATION; Start 12/05/18 at 12:00 Heparin Sodium (Porcine) (Heparin (5000 Units/1ml)) 5,000 unit Q12 SC Last administered on 12/05/18at 20:34; Admin Dose 5,000 UNIT; Start 12/05/18 at 21:00 Sodium Chloride 1,000 ml @ 75 mls/hr [id number] IV Last administered on 12/06/18at 21:42; Admin Dose 75 MLS/HR; Start 12/05/18 at 11:36 Lorazepam (Ativan) 0.5 mg Q6H PRN IV ANXIETY; Start 12/05/18 at 12:00 Albuterol/ Ipratropium (Duoneb) 3 ml Q4H RESP THERAPY PRN HHN SHORTNESS OF BREATH; Start 12/05/18 at 12:00 Piperacillin Sod/ Tazobactam Sod 100 ml @ 200 mls/hr Q6 IVPB Last administered on 12/07/18at 05:35; Admin Dose 200 MLS/HR; Start 12/05/18 at 12:00 Hydralazine HCl (Apresoline) 10 mg Q6H PRN IV ELEVATED BLOOD PRESSURE; Start 12/05/18 at 12:00 Clonidine (Catapres) 0.1 mg Q6H PRN PO ELEVATED BLOOD PRESSURE; Start 12/05/18 at 12:00 Nitroglycerin (Nitroglycerin (Sl Tab) 0.4 Mg) 1 tab Q5M PRN SL ANGINA; Start 12/05/18 at 12:00 Tamsulosin HCl (Flomax) 0.4 mg HS PO Last administered on 12/06/18at 20:41; Admin Dose 0.4 MG; Start 12/05/18 at 21:00 Assessment/Plan Hospital Course (Demo Recall) 48-year-old female presented to the emergency room with right flank pain with nausea and vomiting. She also complains of dysuria and feeling of constant urge to urinate. She underwent a CT scan of the abdomen and pelvis and that showed: Moderate Right hydroureter nephrosis with adjacent calculi ureterovesicular junction, larger of which measures 6 mm in diameter. Diverticulosis. No evidence of diverticulitis or appendicitis. L2-L3 degenerative disc disease. Patient states that she has been having the pain on and off since June and she previously has gone to another hospital and nothing was done for her. Patient underwent cystoscopy, right ureteroscopy, laser lithotripsy and insertion of right ureteral JJ stent on 12/06/2018. She is doing well this morning. She may be discharged home on oral pain medications and antibiotic and she should follow-up with my office on Thursday to remove her JJ stent. I gave her my card with my phone number and address on it for her to call and make the appointment. DULCE LLOYD MD Dec 07, 2018 08:03
[2018-12-07] MEDS ORDERED: HYDR-3601 PO (09:43)
[2018-12-07] MEDS ORDERED: CIPR500T4 PO (09:43)
--- NOTE | 2018-12-07 09:45 | PDOCDIS ---
Discharge Instructions DIAGNOSIS Discharge Diagnosis Nephrolithiasis s/p lithotripsy and stent placement CONDITION [id number] Patient Condition: [id number] Good HOME CARE INSTRUCTIONS: [id number] Diet Instructions: [id number] Regular ACTIVITY: [id number] Activity Restrictions: [id number] No Restrictions FOLLOW UP/APPOINTMENTS Follow-up Plan 1. Take all medication as prescribed. 2. For pain, take ibuprofen up to 800mg every 6 hours. If this does not help, take [place]elope. Do not drink alcohol, drive, or operate machinery after taking [place]. 3. See Dr. Patiño in clinic as scheduled. 1. Wang todos los medicamentos segn lo prescrito. 2. Para el dolor, tome ibuprofeno hasta 800 mg cada 6 horas. Si esto no ayuda, tome Antelope. No brie alcohol, conduzca ni opere maquinaria despus de wang Antelope. 3. Janet al Dr. Patiño en la clnica segn lo programado. NORMA COPELAND MD Dec 07, 2018 09:45
[2018-12-07 13:50] VITALS: BP 103/61; PULSE 54; RESP 18
--- NOTE | 2018-12-07 14:40 | DS ---
Date/Time of Note Date/Time of Note DATE: 12/07/18 TIME: 14:38 Discharge Summary Admission/Discharge Info Admit Date/Time Dec 05, 2018 at 09:49 Discharge Date/Time Dec 07, 2018 at 14:33 Discharge Diagnosis Nephrolithiasis s/p lithotripsy and stent placement Patient Condition: Good Consults Dr. Patiño, urology Procedures 12/06: Cystoscopy, right ureteroscopy, laser lithotripsy and insertion of right ureteral JJ stent 6 Mongolian by 22 cm long Hx of Present Illness HISTORY OF PRESENT ILLNESS: A 48-year-old female with past medical history of possible thyroid problems and possible bipolar disorder who has been having right-sided flank and abdominal pain. Symptoms began last night. She had some vomiting symptoms, nonbilious, nonbloody. She has never had these symptoms before. She apparently had some mild dysuria as well. Denies any hematuria. No fevers or chills. No diarrhea or constipation. No chest pain or shortness of breath. When she came in, she had a CT scan abdomen and pelvis performed that shows signs of moderate right hydroureteronephrosis with adjacent calculi UV junction, larger of which measures 6 mm in diameter. A call was made out to the urologist to come evaluate the patient, which is still pending. The patient also was found white count of 12.7. PAST MEDICAL HISTORY: As stated above. ALLERGIES: NO KNOWN DRUG ALLERGIES. HOME MEDICATIONS: None. PAST SURGICAL HISTORY: She has had tubal ligation in the past. SOCIAL HISTORY: Negative for smoking or drinking, or IV drug abuse. FAMILY HISTORY: Noncontributory. Hospital Course The patient was started on tamsulosin and monitored for a day with urine straining. When the stone did not pass on its own; she was taken for right ureteroscopy and laser lithotripsy with stent insertion. Postoperatively patient feeling well. Discharged with ciprofloxacin and norco to see Dr. Patiño in clinic to remove the stent. Home Meds Active Scripts Ciprofloxacin Hcl* (Ciprofloxacin Hcl*) 500 Mg Tablet, 500 MG PO BID, #14 TAB Prov:NORMA COPELAND MD 12/07/18 Hydrocodone Bit-Acetaminophen (Hydrocodone Bit-APAP) 5-325MG Tablet, 1 TAB PO Q6H PRN for .MOD PAIN 4-6, #14 TAB Prov:NORMA COPELAND MD 12/07/18 Follow-up Plan 1. Take all medication as prescribed. 2. For pain, take ibuprofen up to 800mg every 6 hours. If this does not help, take [place]. Do not drink alcohol, drive, or operate machinery after taking [place]. 3. See Dr. Patiño in clinic as scheduled. 1. Wang todos los medicamentos segn lo prescrito. 2. Para el dolor, tome ibuprofeno hasta 800 mg cada 6 horas. Si esto no ayuda, tome [place]. No brie alcohol, conduzca ni opere maquinaria despus de wang [place]. 3. Janet al Dr. Patiño en la clnica segn lo programado. Primary Care Provider Not On Staff Doctor Time spent on discharge: > 30 minutes Pending Labs Laboratory Tests Test 12/07/18 04:38 White Blood Count 6.6 10^3/ul (4.8-10.8) Red Blood Count 3.73 10^6/ul (4.20-5.40) Hemoglobin 11.4 g/dl (12.0-16.0) Hematocrit 35.0 % (37.0-47.0) Mean Corpuscular Volume 93.8 fl (82.0-101.0) Mean Corpuscular Hemoglobin 30.6 pg (29.0-33.0) Mean Corpuscular Hemoglobin Concent 32.6 g/dl (32.0-37.0) Red Cell Distribution Width 12.8 % (11.5-14.5) Platelet Count 234 10^3/UL (140-415) Mean Platelet Volume 10.9 fl (7.4-10.4) Immature Granulocytes % 0.500 % (0.001-0.429) Neutrophils % 87.6 % (39.0-77.0) Lymphocytes % 10.8 % (15.0-51.0) Monocytes % 0.9 % (0.0-11.0) Eosinophils % 0.0 % (0.0-7.0) Basophils % 0.2 % (0.0-2.0) Nucleated Red Blood Cells % 0.0 /100WBC (0.0-0.0) Immature Granulocytes # 0.030 10^3/ul (0.0-0.031) Neutrophils # 5.8 10^3/ul (1.6-7.5) Lymphocytes # 0.7 10^3/ul (0.8-2.9) Monocytes # 0.1 10^3/ul (0.3-0.9) Eosinophils # 0.0 10^3/ul (0.0-0.5) Basophils # 0.0 10^3/ul (0.0-0.1) Nucleated Red Blood Cells # 0.0 10^3/ul (0.0-0.0) Sodium Level 142 mmol/L (135-144) Potassium Level 3.7 mmol/L (3.5-5.1) Chloride Level 109 mmol/L (97-110) Carbon Dioxide Level 24 mmol/L (21-31) Anion Gap 9 (5-13) Blood Urea Nitrogen 9 mg/dl (7-20) Creatinine 0.55 mg/dl (0.44-1.00) Est Glomerular Filtrat Rate mL/min > 60 mL/min (>60) Glucose Level 153 mg/dl (70-220) Calcium Level 9.0 mg/dl (8.4-10.2) Microbiology Date/Time Source Procedure Growth Status 12/06/18 18:50 Cystobladder Urine Culture - Preliminary NO GROWTH Resulted AFTER 24 HOURS NORMA COPELAND MD Dec 07, 2018 14:40
== END 2018-12-07 14:33 | disposition home or self-care (01) | DRG 661 ==
LOC: E/R 06:49 → MS1 09:49
PROVIDERS: ADMIT Hospitalist; ATTEND Internal Medicine
PROC: 0T768DZ Dilation of Right Ureter with Intraluminal Device, Via Natural or Artificial Opening Endoscopic (ICD-10-PCS; 2018-12-06)
PROC: 0TC68ZZ Extirpation of Matter from Right Ureter, Via Natural or Artificial Opening Endoscopic (ICD-10-PCS; principal; 2018-12-06 17:30)
DX: N13.2 Hydronephrosis with renal and ureteral calculous obstruction (principal); N39.0 Urinary tract infection, site not specified; Z98.51 Tubal ligation status
CPT/HCPCS: 36415; 71045; 74018; 74176; 74430; 80048; 80053; 80061; 81003; 81025; 83036; 83690; 83735; 84100; 84439; 84443; 85025; 85610; 85730; 87086; 88300; 93005; 96374; 96375; C2617; J0690; J0696; J1100; J1170; J1644; J1885; J2250; J2270; J2405; J2543; J3010